=== PATIENT | male | born 2000 ===

== ENCOUNTER 2022-08-25 16:23 | Emergency (ER) | payer OTHER ==
[~2022-08-25] VITALS: Ht 175.3 cm; Wt 84.1 kg
[2022-08-25 16:52] VITALS: BP 132/96
== END 2022-08-25 19:09 | disposition home or self-care (01) ==
LOC: EMS 16:23
DX: F12.980 Cannabis use, unspecified with anxiety disorder (principal); Z88.5 Allergy status to narcotic agent
CPT/HCPCS: 99283; Z7502